=== PATIENT | female | born 1955 | race Caucasian/White ===

== ENCOUNTER → 2016-12-11 | Outpatient (CLI) | payer MEDICARE | LOC: EMI 13:45 | DX: G35 Multiple sclerosis (principal) | CPT/HCPCS: 70553; A9577; J7050 ==

== ENCOUNTER → 2022-01-08 | Outpatient (CLI) | payer OTHER, MEDICARE ==
[~2022-01-08] MED LIST: LORTAB 5-325 M1 EACH PO; MOBIC15 MG PO; NEURONTIN 300300 MG PO; NORCO 5-325 TA1 EACH PO; PANTOPRAZOLE SO40 MG PO; ULTRAM50 MG PO; VITAMIN D250000 UNIT PO; WELLBUTRIN SR150 M1 PO
== END ==
LOC: KOH-I 15:03
DX: S22.22XA Fracture of body of sternum, initial encounter for closed fracture (principal)
CPT/HCPCS: 71046; 71100; 71120

== ENCOUNTER → 2022-01-09 | Outpatient (CLI) | payer OTHER, MEDICARE | LOC: KOH-I 13:00 | DX: S22.22XA Fracture of body of sternum, initial encounter for closed fracture (principal) | CPT/HCPCS: 71250 ==

== ENCOUNTER 2022-02-11 06:17 | Emergency (ER) | payer MEDICARE ==
[2022-02-11 07:04] LABS: HEMOGLOBIN 12.9 gm/dl (12.3-15.3); RED BLOOD COUNT 4.09 M/UL (4.00-5.10); WHITE BLOOD COUNT 3.8 K/UL (4.5-11.0)
[2022-02-11 07:34] LABS: BUN/CREATININE RATIO 28 (0-10)
[2022-02-11] MEDS ORDERED: ZOFRAN ODT 4 MG4 MG PO (08:35)
== END 2022-02-11 09:18 | disposition home or self-care (01) ==
LOC: ER1 06:17
PROVIDERS: Physician Assistant
DX: U07.1 COVID-19 (principal); Z90.89 Acquired absence of other organs
CPT/HCPCS: 71045; 80053; 85025; 96374; 99284; J2405; U0002